=== PATIENT | male | born 1940 | race Caucasian/White ===

== ENCOUNTER 2020-08-13 00:35 | Observation (INO) ==
[2020-08-13] MEDS ORDERED: Naloxone 0.4 MG/ML INJ IVP PRN (03:26)
[2020-08-13] MEDS ORDERED: Acetaminophen 325 MG TABLET PO PRN (03:26)
[2020-08-13] MEDS ORDERED: Ondansetron ODT 4 MG TAB.RAPDIS SL PRN (03:26)
[2020-08-13] MEDS ORDERED: Vancomycin 1,750 MG in 0.9 % Sodium Chloride 250 ML IVPB SCH (04:00)
[2020-08-13] MEDS: 0.9 % Sodium Chloride 1,000 ML IVC SCH ×2 (07:40→17:50)
[2020-08-13] MEDS: Cefepime HCl 1,000 MG in 0.9 % Sodium Chloride Mini Bag 100 ML IVPB SCH ×2 (07:43→17:51)
[2020-08-13 08:38] LABS: Bacteria,Urine Few per hpf (None-Few); Bilirubin,Urine Negative (Negative); Blood,Urine Small (Negative); Clarity,Urine Turbid (Clear); Color,Urine Yellow (Yellow); Glucose,Urine (UA) Normal (Normal); Ketones,Urine Negative (Negative); Leukocyte Esterase,Urine Large (Negative); Mucus,Urine Few per lpf (None-Few); Nitrite,Urine Negative (Negative); Protein,Urine 50 mg/dL (Neg-Trace); Specific Gravity,Urine 1.018 (1.010-1.025); Squamous Epithelial Cell,Urine Few per hpf (None-Few); Urobilinogen,Urine Normal (Normal); WBC,Urine 50-100 per hpf (0-3)
[2020-08-13 09:39] LABS: Hemoglobin 7.3 g/dL (12.9-16.9); Immature Granulocytes % 0.5 % (0-4); Red Cell Distribution Width 15.2 % (11.5-14.5)
[2020-08-13 09:41] LABS: Eosinophils # 0.1 K/mcL (0.0-0.6); Eosinophils % 1.7 %; Hematocrit 22.6 % (37.5-50.1); Immature Platelets 0.9 % (1.1-6.1); Lymphocytes # 0.6 K/mcL (0.6-4.6); Lymphocytes % 13.7 %; Mean Corpuscular HGB Conc 32.3 g/dL (31.6-35.5); Mean Corpuscular Hemoglobin 32.3 pg (28.0-33.3); Mean Platelet Volume 8.9 fL (9.4-12.4); Monocytes # 0.5 K/mcL (0.0-1.3); Monocytes % 12.5 %; Nucleated Red Blood Cells 0.5 /100 WBC (0); Red Blood Count 2.26 M/mcL (4.19-5.50); Segmented Neutrophils % 71.6 %; White Blood Count 4.2 K/mcL (4.3-11.1)
[2020-08-13 09:44] LABS: Platelet Count 79 K/mcL (140-400)
[2020-08-13 09:45] LABS: INR 1.6; Prothrombin Time 18.3 Seconds (9.4-12.1)
[2020-08-13 09:54] LABS: Alanine Aminotransferase 16 Units/L (7-52); Albumin 2.9 g/dL (3.5-5.7); Albumin/Globulin Ratio 1.2 (1.1-2.2); Alkaline Phosphatase 35 Units/L (34-104); Aspartate Amino Transferase 26 Units/L (13-39); BUN/Creatinine Ratio 15 (6-26); Bilirubin,Total 1.2 mg/dL (0.3-1.0); Blood Urea Nitrogen 20 mg/dL (8-23); C-Reactive Protein 134 mg/L (Less than 10); Calcium 7.1 mg/dL (8.6-10.3); Carbon Dioxide 22 mEq/L (23-29); Chloride 110 mEq/L (98-107); Globulin 2.5 g/dL (2.4-3.5); Glucose 111 mg/dL (70-105); Magnesium 1.5 mg/dL (1.6-2.6); Osmolality,Calculated 287 (280-300); Phosphorous 2.3 mg/dL (2.7-4.5); Potassium 3.6 mEq/L (3.5-5.1); Sodium 137 mEq/L (136-145); Total Protein 5.4 g/dL (6.4-8.9); eGFR For African Americans > 60 (> 60); eGFR For Non-African Americans 50 (> 60)
[2020-08-13 10:01] LABS: Platelet Estimate Decreased (Normal)
[2020-08-13 10:02] LABS: Toxic Granulation Present (Not Present)
[2020-08-13] MEDS ORDERED: Vancomycin 1,500 MG/265 ML IV.SOLN IVPB SCH (18:00)
[2020-08-13] MEDS ORDERED: Ipratropium/Albuterol Neb 3 ML IH PRN (18:02)
[2020-08-14] MEDS ORDERED: Melatonin 3 MG TABLET PO ONE (03:04)
[2020-08-14] MEDS: Cefepime HCl 1,000 MG in 0.9 % Sodium Chloride Mini Bag 100 ML IVPB SCH (05:04)
[2020-08-14 06:35] LABS: Hemoglobin 8.5 g/dL (12.9-16.9); Red Cell Distribution Width 14.9 % (11.5-14.5)
[2020-08-14 06:37] LABS: Basophils % 0.2 %; Eosinophils # 0.1 K/mcL (0.0-0.6); Eosinophils % 2.2 %; Hematocrit 26.1 % (37.5-50.1); Immature Granulocytes % 0.7 % (0-4); Immature Platelets 1.1 % (1.1-6.1); Lymphocytes # 0.7 K/mcL (0.6-4.6); Lymphocytes % 17.7 %; Mean Corpuscular HGB Conc 32.6 g/dL (31.6-35.5); Mean Corpuscular Hemoglobin 32.2 pg (28.0-33.3); Mean Corpuscular Volume 98.9 fL (83.0-100.0); Mean Platelet Volume 8.8 fL (9.4-12.4); Monocytes # 0.4 K/mcL (0.0-1.3); Neutrophils # 2.8 K/mcL (1.6-8.9); Platelet Count 101 K/mcL (140-400); Red Blood Count 2.64 M/mcL (4.19-5.50); Segmented Neutrophils % 70.2 %
[2020-08-14 07:00] LABS: % Iron Saturation 28 % (20-55); BUN/Creatinine Ratio 17 (6-26); Blood Urea Nitrogen 23 mg/dL (8-23); Calcium 8.2 mg/dL (8.6-10.3); Carbon Dioxide 23 mEq/L (23-29); Chloride 106 mEq/L (98-107); Glucose 129 mg/dL (70-105); Iron 55 mcg/dL (65-175); Magnesium 2.1 mg/dL (1.6-2.6); Osmolality,Calculated 285 (280-300); Potassium 4.4 mEq/L (3.5-5.1); Sodium 135 mEq/L (136-145); Transferrin 138 mg/dL (203-362); eGFR For African Americans > 60 (> 60); eGFR For Non-African Americans 50 (> 60)
[2020-08-14 07:10] VITALS: BP 125/67
[2020-08-14 07:12] LABS: Ferritin 1127 ng/mL (20-250)
[2020-08-14 07:17] LABS: Folate 18.9 ng/mL (3.0-16.0)
[2020-08-14] MEDS ORDERED: Loratadine 10 MG TABLET PO SCH (09:00)
[2020-08-14] MEDS ORDERED: Finasteride 5 MG TABLET PO SCH (09:00)
[2020-08-14] MEDS ORDERED: Cefdinir 300 MG CAPSULE PO SCH (10:06)
[2020-08-14] MEDS ORDERED: Doxycycline 100 MG CAPSULE PO SCH (10:15)
[2020-08-18 15:29] LABS: C. trachomatis by NAA Negative (Negative); N. gonorrhoeae by NAA Negative (Negative)
== END 2020-08-14 12:11 | disposition home or self-care (01) ==
LOC: 3ANU → SUATTDRO 02:28
PROVIDERS: ADMIT Internal Medicine; ATTEND Pharmacist